=== PATIENT | male | born 1960 | race Caucasian/White ===

== ENCOUNTER 2024-09-03 11:13 | Outpatient (RCR) | payer MEDICAID, SELFPAY ==
--- NOTE | 2024-09-03 13:07 | PT.ODAYNRPT ---
PT Outpatient Daily Note OP Daily Note Outpatient Physical Therapy Treatment Date: 09/03/24 Visit Reasons: Right shoulder surgery Subjective: Pt follows up with surgeon 10/02/24. Pt notice his ROM is improving allowing him to groom with less limitation. Pt still has limitation reaching outward due to tightness and pain Objective: Please see flow chart for list of ther ex performed Assessment: continues to improve with shoulder ROM; still guarded with shoulder ER strecthing leading to less effective stretch Plan: Continue with PT Length of Time (minutes) of Treatment: 30 Minutes Procedure Charges Therapeutic Exercise 30 minutes: Yes
== END 2024-09-13 23:59 | disposition home or self-care (01) ==
LOC: CPTX 11:13
PROVIDERS: PCP Nurse Practitioner Family; Referring Provider Nurse Practitioner Family; Visit Provider Nurse Practitioner Family
DX: M25.511 Pain in right shoulder (principal); S46.001D Unspecified injury of muscle(s) and tendon(s) of the rotator cuff of right shoulder, subsequent encounter; X58.XXXD Exposure to other specified factors, subsequent encounter
CPT/HCPCS: 97110

== ENCOUNTER 2024-09-23 13:00 | Outpatient (RCR) | payer MEDICAID, SELFPAY ==
--- NOTE | 2024-09-18 14:03 | PT.ODAYNRPT ---
PT Outpatient Daily Note OP Daily Note Outpatient Physical Therapy Treatment Date: 09/18/24 Visit Reasons: Right shoulder surgery Subjective: Pt's shoulder feels about the same. Pt mention he feels that he hit a wall. Objective: Please see flow chart for list of ther ex performed Assessment: no change in pain or ROM since last session. Pt instructed to consult with surgeon on the next appt to see if shoulder manipulation is in the work. Plan: Continue with PT unless shoulder manipulation is indicated Length of Time (minutes) of Treatment: 30 Minutes Procedure Charges Therapeutic Exercise 30 minutes: Yes
--- NOTE | 2024-09-23 13:33 | PT.ODAYNRPT ---
PT Outpatient Daily Note OP Daily Note Outpatient Physical Therapy Treatment Date: 09/23/24 Visit Reasons: Right shoulder surgery Subjective: Pt's shoulder continues to be tight. Pt mention he notice some pain with internal rotation ROM Objective: Please see flow chart for list of ther ex performed Assessment: slight progression with shoulder scaption AAROM. Pt still exhibit plateau ROM due to frozen shoulder. Pt advised to consult with surgeon next appt. Plan: Continue with PT Length of Time (minutes) of Treatment: 30 Minutes Procedure Charges Therapeutic Exercise 30 minutes: Yes
== END 2024-10-14 23:59 | disposition home or self-care (01) ==
LOC: CPTX 13:00
PROVIDERS: PCP Nurse Practitioner Family; Referring Provider Nurse Practitioner Family; Visit Provider Nurse Practitioner Family
DX: M25.511 Pain in right shoulder (principal); S46.001D Unspecified injury of muscle(s) and tendon(s) of the rotator cuff of right shoulder, subsequent encounter; X58.XXXD Exposure to other specified factors, subsequent encounter
CPT/HCPCS: 97110

== ENCOUNTER 2024-11-13 13:00 | Outpatient (RCR) | payer MEDICAID, SELFPAY ==
--- NOTE | 2024-10-22 13:43 | PT.ODS1RPT ---
PT OP Progress/Discharge Note Date of Service: 10/22/24 Progress Note/DC Note Progress Note/Discharge Note: Progress Note Patient Information Visit Reasons: right shoulder pain Medical Diagnosis: M75.11 Treatment Dx #1: Right Shoulder Pain Service Continue Service or Discharge: Continue Service Certification Date Certification Dates: 10/22/24 to 01/20/25 Status Subjective: Pt just came back from surgeon's office and received a cortisone shot. Shoulder manipulation was not mentioned. Pt still has limitation with reaching behind his back, overhead, lifting, chores, self care, and recreational activities. Pt has been able to drive, lift to shoulder height, and performing light cleaning inside the house. Pt will follow up with surgeon in a month. Objective: Right Shoulder AROM Flexion: 140 deg Abduction: 120 deg External Rotation: 70 deg Internal Rotation: 50 deg Right Shoulder MMTs: grossly 3+/5 Right Scapula MMTs: grossly 3+/5 HBB AROM: thumb L4 Assessment: Pt demonstrate slow progress with shoulder AROM and strength allowing him to start light ADLs, despite, improvement Pt still has limited mobility due to frozen shoulder. Pt has not met set goals and will continue to benefit from physical therapy; thank you for your referrals. Plan: Continue with PT/POC and add 12 sessions (2 x wk for 6 wks) Procedure Charges Therapeutic Exercise 30 minutes: Yes
--- NOTE | 2024-10-30 13:33 | PT.ODAYNRPT ---
PT Outpatient Daily Note OP Daily Note Outpatient Physical Therapy Treatment Date: 10/30/24 Visit Reasons: right shoulder pain Subjective: Pt's shoulder feels better and notice incremental improve with his ROM. Pt's been stretching with funmilayo at home. Pt also mentioned cortisone shot did not last long due to now noticing pain again. Objective: Please see flow chart for list of ther ex performed Assessment: slowly progressing with shoulder AAROM in flexion and scaption. Started stretching HBB AROM; improved post stretching. Pt was advised to continue HBB stretch at home to help increase ROM Plan: Continue with PT Length of Time (minutes) of Treatment: 30 Minutes Procedure Charges Therapeutic Exercise 30 minutes: Yes
--- NOTE | 2024-11-04 14:39 | PT.ODAYNRPT ---
PT Outpatient Daily Note OP Daily Note Outpatient Physical Therapy Treatment Date: 11/04/24 Visit Reasons: right shoulder pain Subjective: Pt's shoulder feels better. Pt still has limitation with reaching behind the back. Pt notice his arm is going higher with his pulleys at home. Objective: HBB AROM: Thumb at L3 Assessment: progressing with HBB AROM with less pain reported. Plan: Continue with PT Length of Time (minutes) of Treatment: 30 Minutes Procedure Charges Therapeutic Exercise 30 minutes: Yes
--- NOTE | 2024-11-06 14:23 | PT.ODAYNRPT ---
PT Outpatient Daily Note OP Daily Note Outpatient Physical Therapy Treatment Date: 11/06/24 Visit Reasons: right shoulder pain Subjective: Pt notice slow progress with shoulder ROM, however, notice improvement with HBB AROM Objective: Please see flow chart for list of ther ex performed Assessment: continue to progress with HBB AAROM and flexion AAROM with less pain reported. Pt was instructed to continue shoulder 4 way at home as HEP Plan: Continue with PT Length of Time (minutes) of Treatment: 30 Minutes Procedure Charges Therapeutic Exercise 30 minutes: Yes
--- NOTE | 2024-11-13 13:33 | PT.ODAYNRPT ---
PT Outpatient Daily Note OP Daily Note Outpatient Physical Therapy Treatment Date: 11/13/24 Visit Reasons: right shoulder pain Subjective: Pt c/o shoulder stiffness. Objective: Please see flow sheet for ther ex list. Assessment: Pt instructed on OH wand exercise to work on mobility, pt completed with minimal pain. Plan: Continue with pOC. Length of Time (minutes) of Treatment: 30 Minutes Procedure Charges Therapeutic Exercise 30 minutes: Yes
== END 2024-11-14 23:59 | disposition home or self-care (01) ==
LOC: CPTX 13:00
PROVIDERS: PCP Nurse Practitioner; Referring Provider Nurse Practitioner; Visit Provider Nurse Practitioner
DX: M25.511 Pain in right shoulder (principal); S46.011D Strain of muscle(s) and tendon(s) of the rotator cuff of right shoulder, subsequent encounter; X58.XXXD Exposure to other specified factors, subsequent encounter
CPT/HCPCS: 97110

== ENCOUNTER 2024-11-20 10:30 | Outpatient (RCR) | payer MEDICAID, SELFPAY ==
--- NOTE | 2024-11-18 13:23 | PT.ODAYNRPT ---
PT Outpatient Daily Note OP Daily Note Outpatient Physical Therapy Treatment Date: 11/18/24 Visit Reasons: RT shoulder pain Subjective: Pt c/o stiff shoulder. Objective: Please see flow sheet for ther ex list. Assessment: High focus on restoring ROM and functional strength. Plan: Continue with POC. Length of Time (minutes) of Treatment: 30 Minutes Procedure Charges Therapeutic Exercise 30 minutes: Yes
--- NOTE | 2024-11-20 11:34 | PT.ODAYNRPT ---
PT Outpatient Daily Note OP Daily Note Outpatient Physical Therapy Treatment Date: 11/20/24 Visit Reasons: RT shoulder pain Subjective: Pt's shoulder feels better. Pt notice he can now tuck in his shirt with less limitation Objective: Please see flow chart for list of th er ex performed Assessment: tolerate exercises with minimal pain; continues to progress with HBB AROM post stretching Plan: Continue with PT Length of Time (minutes) of Treatment: 30 Minutes Procedure Charges Therapeutic Exercise 30 minutes: Yes
--- NOTE | 2024-12-25 13:47 | PT.ODS1RPT ---
PT OP Progress/Discharge Note Date of Service: 12/25/24 Progress Note/DC Note Progress Note/Discharge Note: DC Note Patient Information Visit Reasons: RT shoulder pain Service Discharge Date: 12/25/24 Status Assessment: Pt has been seen for 23 visits (eval + 22 visits) inconsistently. Pt no showed appts (11/25, 11/27). Pt has been contact multuiple time regarding follow up appts without success. At this time Pt will be d/c from care due to non-compliance per attendance policy. Pt did not meet set goals in therapy; thank you for your referrals.
== END 2024-12-12 23:59 | disposition home or self-care (01) ==
LOC: CPTX 10:30
PROVIDERS: PCP Nurse Practitioner; Referring Provider Nurse Practitioner; Visit Provider Nurse Practitioner
DX: M25.511 Pain in right shoulder (principal); S49.91XD Unspecified injury of right shoulder and upper arm, subsequent encounter; X58.XXXD Exposure to other specified factors, subsequent encounter
CPT/HCPCS: 97110

== ENCOUNTER → 2025-02-03 | Outpatient (CLI) | payer MEDICAID, SELFPAY ==
--- NOTE | 2025-02-03 15:30 | XR_ITS ---
Examination: Ultrasound abdominal aorta TECHNIQUE: Grayscale sonographic images abdominal aorta Exam date and time: February 03, 2025 1329 hours INDICATIONS: Smoking history 50 years FINDINGS: Transverse dimension proximal aorta 2.7 cm mid aorta 2.4 cm distal aorta 1.8 cm, right iliac 1.1 cm left iliac 1.1 cm IMPRESSION: Negative for abdominal aortic aneurysm
--- NOTE | 2025-02-03 16:00 | XR_ITS ---
Examination: CT chest, without intravenous contrast. Sagittal and coronal 2-D reconstructions. Exam date and time: February 03, 2025 1640 hours INDICATIONS: Smoking history 50 years CTDI:vol (mGy) 12.9 DLP: (mGycm) 512 Technique: Multiple 3.0 mm axial sections of the chest to been obtained. Bone and lung density settings are obtained. Sagittal and coronal 2-D reconstructions have been obtained. Low dose protocols were performed. One or more of the following dose reduction techniques were used; automated exposure control, adjustment of the mA and/or KV according to patient size, use of iterative reconstruction technique. Findings: No thoracic aortic aneurysm dilatation Pulmonary artery segments are not enlarged Moderate calcification left anterior descending coronary artery Mild enlargement cardiac contour. No pneumonia, pulmonary edema, pleural disease or pulmonary nodules No visualized liver splenic lesion No gallstones Normal pancreas normal adrenal glands IMPRESSION: No mediastinal lymphadenopathy No pneumonia, pulmonary edema, pleural disease or pulmonary nodules
== END | disposition home or self-care (01) ==
PROVIDERS: Referring Provider Nurse Practitioner Family; Visit Provider Nurse Practitioner Family
DX: Z87.891 Personal history of nicotine dependence (principal)
CPT/HCPCS: 71250; 76706